=== PATIENT | female | born 1970 | race Asian ===

== ENCOUNTER 2024-01-31 12:45 | Emergency (ER) | payer OTHER ==
[~2024-01-31] VITALS: Ht 160 cm; Wt 63.2 kg
[2024-01-31 12:51] VITALS: BP 117/70; PULSE 58; RESP 15; TEMP 97.7; O2SAT 98
== END 2024-01-31 14:47 | disposition home or self-care (01) ==
LOC: MED 12:45
DX: S00.83XA Contusion of other part of head, initial encounter (principal); Z79.899 Other long term (current) drug therapy; W01.198A Fall on same level from slipping, tripping and stumbling with subsequent striking against other object, initial encounter; Y93.89 Activity, other specified; Y92.89 Other specified places as the place of occurrence of the external cause; Y99.8 Other external cause status
CPT/HCPCS: 70450; 70486; 90471; 90715; 99285